=== PATIENT | female | born 1990 | race Caucasian/White ===

== ENCOUNTER 2017-01-31 12:54 | Emergency (ER) | payer SELFPAY ==
[2017-01-31 13:02] VITALS: BP 117/78
--- NOTE | 2017-01-31 14:02 | ER Document Report ---
HPI - HPI Pain Level: 3 Notes: Patient is a 26-year-old female presents the ED complaining of left lower wisdom tooth pain 4-5 days. Patient states that it began after chewing some food, but believes that there is an infection in the tooth. Patient states that she does have a dentist and is scheduled for an appointment next month, and that dentist is currently out of the office until next week. Her dentist told her to come get antibiotics for possible infection. Patient has not noticed any abscess or purulent discharge. She still able to eat and drink without any problems. Patient does smoke but does not do any miscellaneous drugs. Patient is currently on methadone. She has a history of poor dentition without any other significant past medical history. She does not have a PCM. Denies any fever, headache, URI, sore throat, dysphagia, swelling of her lips/ tongue, chest pain, palpitations, syncope, cough, wheeze, shortness of breath, abdominal pain, nausea/vomiting/diarrhea, dysuria, joint pains, or rash. Any recent travel/illness, exposure to sick contacts. Patient reports immunizations are up-to-date - ROS Notes: REVIEW OF SYSTEMS: CONSTITUTIONAL : Denies fever, chills, or sweats. Denies recent illness. EENT: see hpi CARDIOVASCULAR: Denies chest pain. Denies palpitations or racing or irregular heart beat. Denies ankle edema. RESPIRATORY: Denies cough, cold, or chest congestion. Denies shortness of breath, difficulty breathing, or wheezing. GASTROINTESTINAL: Denies abdominal pain or distention. Denies nausea, vomiting , or diarrhea. Denies blood in vomitus, stools, or per rectum. Denies black, tarry stools. Denies constipation. GENITOURINARY: Denies difficulty urinating, painful urination, burning, frequency, blood in urine, or discharge. MUSCULOSKELETAL: Denies back or neck pain or stiffness. Denies joint pain or swelling. SKIN: Denies rash, lesions or sores. NEUROLOGICAL: Denies confusion or altered mental status. Denies passing out or loss of consciousness. Denies dizziness or lightheadedness. Denies headache. Denies weakness or paralysis or loss of use of either side. Denies problems with gait or speech. Denies sensory loss, numbness, or tingling. PSYCHIATRIC: Denies anxiety or stress. Denies depression, suicidal ideation, or homicidal ideation. ALL OTHER SYSTEMS REVIEWED AND NEGATIVE. Dictation was performed using [employer] voice recognition software - CARDIOVASCULAR Cardiovascular: DENIES: Chest pain - REPRODUCTIVE Reproductive: DENIES: : - DERM Skin Color: Normal Past Medical History - Social History Smoking Status: Current Every Day Smoker Frequency of alcohol use: None Drug Abuse: None Family History: Reviewed & Not Pertinent Patient has suicidal ideation: No Patient has homicidal ideation: No - Past Medical History Cardiac Medical History: Reports: Hx Hypertension Pulmonary Medical History: Reports: Hx Pneumonia Renal/ Medical History: Denies: Hx Peritoneal Dialysis GI Medical History: Denies: Hx Hepatitis Infectious Medical History: Denies: Hx Hepatitis, Hx HIV, Hx MRSA Past Surgical History: Reports: Hx Appendectomy - ruptured age 18 - Immunizations Hx Diphtheria, Pertussis, Tetanus Vaccination: No Vertical Provider Document - CONSTITUTIONAL Agree With Documented VS: Yes Notes: PHYSICAL EXAMINATION: GENERAL: Well-appearing, well-nourished and in no acute distress. HEAD: Atraumatic, normocephalic. EYES: Pupils equal round and reactive to light, extraocular movements intact, sclera anicteric, conjunctiva are normal. ENT: EAC clear b/l. TM's intact b/l without erythema, fluid, or perforation. Nares patent and without discharge. oropharynx clear without exudates. No tonsilar hypertrophy or erythema. Moist mucous membranes. No sinus tenderness. No facial swelling Mouth: Poor dentition throughout. + mild gingivitis. + dark color to the left inferior wisdom tooth with surrounding mild erythema without abscess or discharge. No ludwigs. No airway compromise. + tenderness to palp. NECK: Normal range of motion, supple without lymphadenopathy. No rigidity. LUNGS: Breath sounds clear to auscultation bilaterally and equal. No wheezes rales or rhonchi. HEART: Regular rate and rhythm without murmurs, rubs, gallops. PSYCH: Normal mood, normal affect. SKIN: Warm, Dry, normal turgor, no rashes or lesions noted. - INFECTION CONTROL TRAVEL OUTSIDE OF THE [place] IN LAST 30 DAYS: No - RESPIRATORY O2 Sat by Pulse Oximetry: 96 Course - Re-evaluation Re-evalutation: 01/31/17 14:13 Patient is an afebrile, well-hydrated, 26-year-old female presents the ED with left #17 toothache, suspect nerve etiology versus possible mild infection. No obvious abscess was noted on exam, nor Ludwigs. Vitals are stable. PE otherwise unremarkable. Low suspicion for any Ludwigs, retropharyngeal abscess , meningitis, airway compromise, intracranial hemorrhage, or other systemic infection at this time. Proper dental hygiene encouraged. I will send her home with clindamycin 300mg PO 3 times daily 10 days. Tessalon Perles also provided that she may drain over the tooth to aid in topical pain control. Continue conservative measures as reviewed. Keep her consult with the dentist in 1 month. Recheck/establish with a PCM within the next week. Return to the ED with any worsening/concerning symptoms otherwise as reviewed in discharge. Patient is in agreement. - Vital Signs Vital signs: Temp Pulse Resp BP Pulse Ox 98.4 F 108 H 18 117/78 96 01/31/17 13:01 01/31/17 13:01 01/31/17 13:01 01/31/17 13:01 01/31/17 13:01 Discharge - Discharge Clinical Impression: Toothache Condition: Stable Disposition: HOME, SELF-CARE Instructions: [facility], Clindamycin ([facility]), Toothache ([facility]) Additional Instructions: Ivel teeth and floss twice daily Mouth wash, peroxide rinse, salt water gargles Use tessalon herminio as directed on tooth Take antibiotic as directed Keep appointment with dentist Recheck/establish with PCM this week Return to the ED with any worsening symptoms and/or development of fever, headache, trouble swallowing, swelling in mouth/throat, abscess, purulent discharge, chest pain, palpitations, syncope, shortness of breath, trouble breathing, abdominal pain, n/v/d, numbness/tingling, or other worsening symptoms that are concerning to you. Prescriptions: Benzonatate [Tessalon Perle 100 mg Capsule] 100 mg PO Q8HP PRN #10 cap PRN Reason: Clindamycin HCl [Cleocin 300 mg Capsule] 300 mg PO TID #30 capsule Forms: Smoking Cessation Education Referrals: [facility] [Provider Group] - Follow up as needed
== END 2017-01-31 14:05 | disposition home or self-care (01) ==
LOC: ER 12:54
DX: K08.89 Other specified disorders of teeth and supporting structures (principal); Z79.899 Other long term (current) drug therapy; F17.200 Nicotine dependence, unspecified, uncomplicated
CPT/HCPCS: 99282